=== PATIENT | female | born 1995 | race American Indian/Alaskan Native ===

== ENCOUNTER 2017-11-06 16:43 | Emergency (ER) | payer MEDICAID, OTHER ==
[2017-11-06 16:50] VITALS: BMI 28.5
[2017-11-06 16:52] VITALS: BP 146/94; RESP 17; TEMP 98.3; O2SAT 96
[2017-11-06 16:56] VITALS: PULSE 73
[2017-11-06] MEDS ORDERED: Albuterol 0.083% Inhal Sol (2.5 mg/3 mL) UD INH STA ×2 (17:03→17:33)
[2017-11-06] MEDS ORDERED: guaiFENesin DM 200 mg-20 mg/10 ml UD PO STA (17:04)
--- NOTE | 2017-11-06 17:09 | ED PDOC ---
Arrival/HPI - General Chief Complaint: Cough, Cold, Congestion Time Seen by Provider: 11/06/17 17:01 Historian: Patient - History of Present Illness Narrative History of Present Illness (Text): 11/06/17 17:05 22yo female with no PMHx present with complaint of productive cough, rhinorrhea 2weeks. States the phlegm was green in the beginning but is now clear. States she came to ED today because she started having SOB, chest pain and abdominal pain with cough. She did not take any antitussive. She smokes tobacco. Denies sick contact, travel, diaphoresis, LE edema, calf pain, dizziness, any other complaint. Past Medical History - Provider Review Nursing Documentation Reviewed: Yes - Infectious Disease Hx of Infectious Diseases: None - Psychiatric Hx Anxiety: No Hx Bipolar Disorder: No Hx Depression: No Hx Post Traumatic Stress Disorder: No Hx Schizophrenia: No Hx Substance Use: No - Anesthesia Hx Anesthesia: No Hx Anesthesia Reactions: No Hx Malignant Hyperthermia: No - Suicidal Assessment Feels Threatened In Home Enviroment: No Family/Social History - Physician Review Nursing Documentation Reviewed: Yes Family/Social History: Unknown Family HX Smoking Status: Never Smoked Hx Alcohol Use: No Hx Substance Use: No Allergies/Home Meds Allergies/Adverse Reactions: Allergies No Known Allergies Allergy (Verified 11/06/17 16:50) Review of Systems - Physician Review All systems were reviewed & negative as marked: Yes - Review of Systems Constitutional: Normal Eyes: Normal ENT: Rhinorrhea Respiratory: Cough, Sputum. absent: SOB, Wheezing Cardiovascular: Normal Gastrointestinal: Normal Genitourinary Female: Normal Musculoskeletal: Normal Skin: Normal Neurological: Normal Endocrine: Normal Hemo/Lymphatic: Normal Psychiatric: Normal Physical Exam Vital Signs Reviewed: Yes Vital Signs Temp Pulse Resp BP Pulse Ox 11/06/17 16:52 98.3 F 73 17 146/94 H 96 11/06/17 16:51 98.3 F 80 17 146/94 H 96 Temperature: Afebrile Blood Pressure: Normal Pulse: Regular Respiratory Rate: Normal Appearance: Positive for: Well-Appearing, Non-Toxic, Comfortable Pain Distress: None Mental Status: Positive for: Alert and Oriented X 3 - Systems Exam Head: Present: Atraumatic, Normocephalic Pupils: Present: PERRL Extroacular Muscles: Present: EOMI Conjunctiva: Present: Normal Mouth: Present: Moist Mucous Membranes Neck: Present: Normal Range of Motion Respiratory/Chest: Present: Clear to Auscultation, Good Air Exchange. No: Respiratory Distress, Accessory Muscle Use, Wheezes, Decreased Breath Sounds, Rales, Retracting, Rhonchi, Tachypneic Cardiovascular: Present: Regular Rate and Rhythm, Normal S1, S2. No: Murmurs Abdomen: Present: Normal Bowel Sounds. No: Tenderness, Distention, Peritoneal Signs Back: Present: Normal Inspection Upper Extremity: Present: Normal Inspection. No: Cyanosis, Edema Lower Extremity: Present: Normal Inspection. No: Edema Neurological: Present: GCS=15, CN II-XII Intact, Speech Normal Skin: Present: Warm, Dry, Normal Color. No: Rashes Psychiatric: Present: Alert, Oriented x 3, Normal Insight, Normal Concentration Medical Decision Making ED Course and Treatment: 11/06/17 17:55 PT in ED for stated history. Afebrile, not hypoxic and in no distress. CXR NAD Pt was treated with Zpack, antitussive, albuterol and prednisone. shewas counselled on smoking cessation Referred to the clinic TRT ED for any new or worsening symptoms 0 - RAD Interpretation Radiology Orders: 11/06/17 17:03 CHEST TWO VIEWS (PA/LAT) [RAD] Stat - Medication Orders Current Medication Orders: Discontinued Medications Albuterol Sulfate (Albuterol 0.083% Inhal Azul (2.5 Mg/3 Ml) Ud) 2.5 mg INH STAT STA Stop: 11/06/17 17:04 Last Admin: 11/06/17 17:31 Dose: 2.5 mg Albuterol Sulfate (Albuterol 0.083% Inhal Azul (2.5 Mg/3 Ml) Ud) 2.5 mg INH STAT STA Stop: 11/06/17 17:34 Last Admin: 11/06/17 17:54 Dose: 2.5 mg Guaifenesin/Dextromethorphan (Robitussin Dm) 10 ml PO ONCE STA Stop: 11/06/17 17:05 Last Admin: 11/06/17 17:31 Dose: 10 ml Disposition/Present on Arrival - Present on Arrival Any Indicators Present on Arrival: No History of DVT/PE: No History of Uncontrolled Diabetes: No Urinary Catheter: No History of Decub. Ulcer: No History Surgical Site Infection Following: None - Disposition Have Diagnosis and Disposition been Completed?: Yes Diagnosis: Cough Disposition: HOME/ ROUTINE Disposition Time: 18:00 Patient Plan: Discharge Condition: STABLE Discharge Instructions (ExitCare): Acute Cough (ED) Additional Instructions: Follow up with your Doctor/clinic Return to ED for any new or worsening symptoms Prescriptions: Albuterol HFA [Ventolin HFA 90 mcg/actuation (8 g)] 2 puff IH [id number] #1 puff Azithromycin [Zithromax] 250 mg PO DAILY #4 tab Benzonatate [Tessalon Perle] 100 mg PO TID #20 capsule Forms: [employer] (I[place]ic)
== END 2017-11-06 18:21 | disposition home or self-care (01) ==
LOC: ED 16:43
DX: R05 Cough (principal)